=== PATIENT | male | born 1995 | race Caucasian/White ===

== ENCOUNTER 2020-03-11 12:11 | Observation (INO) ==
[2020-03-11 14:03] LABS: Bilirubin,Urine Negative (Negative); Blood, Urine Negative (Negative); Glucose,Urine (UA) Negative (Negative); Ketones,Urine Negative (Negative); Mucus,Urine Occasional /LPF (Occasional); Nitrite,Urine Negative (Negative); Protein,Urine Negative; Urine Appearance CLEAR (Clear); Urine Color Yellow (Yellow); Urine Specific Gravity 1.027 (1.001-1.035)
[2020-03-11 14:08] LABS: Barbiturates Screen,Urine Negative (Negative); Benzodiazepines Screen,Urine Positive (Negative); Cannabinoid Screen,Urine Negative (Negative); Opiate Screen,Urine Positive (Negative); Phencyclidine Screen,Urine Negative (Negative)
[2020-03-11 16:29] LABS: Basophils % 0.2 % (0.0-0.8); Eosinophils % 0.2 % (0.00-10.9); Hematocrit 40.6 VOL% (42.0-52.0); Hemoglobin 13.6 GM/DL (14.0-18.0); Immature Granulocytes % 0.3 %; Immature Granulocytes Absolute 0.02 #; Lymphocytes # 1.4 10*3/uL (1.4-4.0); Lymphocytes % 22.9 % (21.2-54.2); Mean Corpuscular HGB Conc 33.5 GM/DL (32-36); Mean Corpuscular Volume 81.5 FL (87-102); Mean Platelet Volume 10.3 FL (9.6-12.0); Monocytes % 7.3 % (1.7-12.7); Neutrophils % 69.1 % (38.7-73.9); Platelet Count 157 T/CUMM (130-400); Red Blood Count 4.98 MC/CUMM (3.8-5.5); Red Cell Distribution Width 13.6 % (9.3-17.3)
[2020-03-11 16:50] LABS: Albumin 3.9 G/DL (3.4-5.0); Bilirubin,Total 0.4 MG/DL (0.2-1.0); Calcium 8.6 MG/DL (8.5-10.1); Osmolality,Calculated 277.4 MOS/KG (273-304); Total Protein 7.8 G/DL (6.4-8.3)
[2020-03-11] MEDS ORDERED: fentaNYL 100 MCG/2 ML VIAL ONE ×2 (17:22→17:54)
[2020-03-11] MEDS ORDERED: propofoL 200 MG/20 ML VIAL IV ONE (17:22)
[2020-03-11] MEDS ORDERED: ROCURONIUM 50 MG/5 ML VIAL IV ONE (17:22)
[2020-03-11] MEDS ORDERED: SUCCINYLCHOLINE 200 MG/10 ML VIAL ONE (17:22)
[2020-03-11] MEDS ORDERED: LIDOCAINE 2% 5 ML VIAL ONE (17:22)
[2020-03-11] MEDS ORDERED: MIDAZOLAM 2 MG/2 ML VIAL ONE (17:23)
[2020-03-11] MEDS ORDERED: SEVOFLURANE 1 UNIT/15 MINUTE INH ONE (18:27)
[2020-03-11] MEDS ORDERED: DOCUSATE SODIUM 100 MG CAPSULE PO PRN (23:12)
[2020-03-11] MEDS ORDERED: ONDANSETRON 4 MG/2 ML VIAL IV PRN (23:12)
[2020-03-11] MEDS ORDERED: GLUCAGON 1 MG VIAL IM PRN (23:12)
[2020-03-11] MEDS ORDERED: DEXTROSE 50% 25 GM/50 ML VIAL IV PRN (23:12)
[2020-03-11] MEDS ORDERED: BISACODYL 5 MG TABLET PO PRN (23:12)
[2020-03-11] MEDS ORDERED: PANTOPRAZOLE 40 MG TABLET PO STA (23:15)
[2020-03-11] MEDS ORDERED: NON-FORMULARY MEDICATION (Oxycodone-Acetaminophen [Percocet] 10-325 mg Tablet) PO PRN (23:28)
[2020-03-11] MEDS ORDERED: POTASSIUM CHLORIDE 20 MEQ TABLET PO ONE (23:44)
[2020-03-11] MEDS: oxyCODONE/ACETAMINOPHEN 5-325 MG TABLET PO PRN (23:44)
[2020-03-12] MEDS ORDERED: THIAMINE 100 MG TABLET PO ONE (00:30)
[2020-03-12] MEDS: oxyCODONE/ACETAMINOPHEN 5-325 MG TABLET PO PRN ×4 (06:31→20:15)
[2020-03-12] MEDS: FOLIC ACID 1 MG TABLET PO SCH (09:22)
[2020-03-12] MEDS: THIAMINE 100 MG TABLET PO SCH (09:22)
[2020-03-12] MEDS: SERTRALINE 100 MG TABLET PO SCH (09:22)
[2020-03-12] MEDS: LINACLOTIDE 145 MCG CAPSULE PO SCH (10:40)
[2020-03-12] MEDS: traZODone 50 MG TABLET PO SCH (20:15)
[2020-03-13] MEDS: LINACLOTIDE 145 MCG CAPSULE PO SCH (08:42)
[2020-03-13] MEDS: oxyCODONE/ACETAMINOPHEN 5-325 MG TABLET PO PRN ×3 (08:43→21:36)
[2020-03-13] MEDS: SERTRALINE 100 MG TABLET PO SCH (08:43)
[2020-03-13] MEDS: FOLIC ACID 1 MG TABLET PO SCH (08:43)
[2020-03-13] MEDS: THIAMINE 100 MG TABLET PO SCH (08:43)
[2020-03-13] MEDS: NICOTINE 21 MG/24 HR PATCH TRANSDERM PRN (14:57)
[2020-03-13] MEDS: ZALEPLON 5 MG CAPSULE PO PRN (21:34)
[2020-03-13] MEDS: traZODone 50 MG TABLET PO SCH (21:35)
[2020-03-14] MEDS: oxyCODONE/ACETAMINOPHEN 5-325 MG TABLET PO PRN ×2 (08:49→13:48)
[2020-03-14] MEDS: LINACLOTIDE 145 MCG CAPSULE PO SCH (08:50)
[2020-03-14] MEDS: THIAMINE 100 MG TABLET PO SCH (08:50)
[2020-03-14] MEDS: SERTRALINE 100 MG TABLET PO SCH (08:50)
[2020-03-14] MEDS: FOLIC ACID 1 MG TABLET PO SCH (08:50)
[2020-03-14] MEDS: NICOTINE 21 MG/24 HR PATCH TRANSDERM PRN (15:01)
[2020-03-14] MEDS: ZALEPLON 5 MG CAPSULE PO PRN (21:02)
[2020-03-14] MEDS: traZODone 50 MG TABLET PO SCH (21:02)
[2020-03-14] MEDS: clonazePAM 0.5 MG TABLET PO SCH (21:02)
[2020-03-15] MEDS: SERTRALINE 100 MG TABLET PO SCH (09:15)
[2020-03-15] MEDS: THIAMINE 100 MG TABLET PO SCH (09:15)
[2020-03-15] MEDS: clonazePAM 0.5 MG TABLET PO SCH (09:16)
[2020-03-15] MEDS: oxyCODONE/ACETAMINOPHEN 5-325 MG TABLET PO PRN ×3 (09:16→17:40)
[2020-03-15] MEDS: FOLIC ACID 1 MG TABLET PO SCH (09:16)
[2020-03-15] MEDS: LINACLOTIDE 145 MCG CAPSULE PO SCH (09:37)
[2020-03-15] MEDS: NICOTINE 21 MG/24 HR PATCH TRANSDERM PRN (09:39)
[2020-03-15 16:04] VITALS: BP 122/72
== END 2020-03-15 18:18 ==
LOC: N.EDINP 12:11 → N.ED 12:11 → N.TELEN 03-12 00:01
PROVIDERS: ADMIT Internal Medicine; ATTEND Internal Medicine